=== PATIENT | female | born 1980 | race Caucasian/White ===

== ENCOUNTER 2016-11-03 11:49 | Emergency (ER) | payer MEDICAID ==
[~2016-11-03] VITALS: Ht 157.5 cm; Wt 77.4 kg
[~2016-11-03 11:49] MED LIST: CIPR500T87 PO; HYDR1TAB12 PO; IBUP200C; IBUP800T PO; ONDA4TAB10 PO; OXYC-223 PO
[2016-11-03] MEDS ORDERED: HYDROmorphone 1 MG/ML, 1ML ONE ×2 (12:50→13:33)
[2016-11-03] MEDS ORDERED: ONDANSETRON 2MG/ML, 2ML ONE ×2 (12:50→14:15)
[2016-11-03] MEDS: HYDROmorphone 1 MG/ML, 1ML IVPush PRN ×2 (12:59→13:40)
[2016-11-03] MEDS ORDERED: SODIUM CHLORIDE 0.9% 1,000ML IVBOLUS ONE ×2 (13:00→16:00)
[2016-11-03] MEDS ORDERED: ONDANSETRON 2MG/ML, 2ML IVPush ONE ×2 (13:00→15:00)
[2016-11-03] MEDS ORDERED: SODIUM CHLORIDE FLUSH 10ML SYR IVF ONE (13:00)
[2016-11-03 13:17] LABS: ASPARTATE AMINO TRANSFERASE 26 U/L (15-37); BLOOD UREA NITROGEN 11 mg/dL (7-18)
[2016-11-03] MEDS ORDERED: OMNIPAQUE 350 MG/ML, 100ML BOTTLE ONE (14:10)
[2016-11-03] MEDS ORDERED: KETOROLAC 30 MG/1 ML ONE (15:09)
[2016-11-03] MEDS ORDERED: PROMETHAZINE 25 MG/ML, 1ML ONE (15:09)
[2016-11-03] MEDS ORDERED: PROMETHAZINE 25 MG/ML, 1ML IM ONE (15:30)
[2016-11-03] MEDS ORDERED: KETOROLAC 30 MG/1 ML IVPush ONE (15:30)
[2016-11-03 17:12] VITALS: BP 111/63
== END 2016-11-03 17:14 | disposition home or self-care (01) ==
LOC: ED 14:23
DX: R10.84 Generalized abdominal pain (principal)
CPT/HCPCS: 36415; 74000; 74177; 76700; 80053; 81003; 83690; 85025; 85610; 96361; 96372; 96374; 96375; 96376; 99285; J1170; J1885; J2405; J2550; J7030; Q9967

== ENCOUNTER 2017-05-28 19:33 | Emergency (ER) | payer SELFPAY ==
[~2017-05-28] VITALS: Ht 154.9 cm; Wt 80.0 kg
[~2017-05-28 19:33] MED LIST changes: +IBUP-1223 PO; -IBUP200C; +IBUP200C5; -IBUP800T PO; -OXYC-223 PO; +OXYC-306 PO
[2017-05-28 19:40] VITALS: BP 113/80
[2017-05-28] MEDS ORDERED: AZITHROMYCIN 500 MG TABLET PO STA (20:25)
[2017-05-28] MEDS ORDERED: AZITHROMYCIN 500 MG TABLET ONE (20:31)
[2017-05-28] MEDS ORDERED: AZITHROMYCIN 500 MG TABLET PO ONE (21:00)
== END 2017-05-28 20:49 | disposition home or self-care (01) ==
LOC: ED 20:00
DX: J15.9 Unspecified bacterial pneumonia (principal)
CPT/HCPCS: 71046; 93005; 99284

== ENCOUNTER 2017-06-30 13:02 | Emergency (ER) | payer OTHER ==
[~2017-06-30] VITALS: Ht 157.5 cm; Wt 73.6 kg
[2017-06-30 13:03] VITALS: BP 112/74
[2017-06-30 13:57] LABS: BASOPHILS # (AUTO) 0.04 x10^3/uL (0-0.1); BASOPHILS % (AUTO) 1 % (0-1); EOSINOPHILS # (AUTO) 0.11 x10^3/uL (0-0.4); EOSINOPHILS % (AUTO) 1 % (1-7); LYMPHOCYTES # (AUTO) 1.68 x10^3/uL (1-3.4); LYMPHOCYTES % (AUTO) 18 % (22-44); MD NO; MEAN CORPUSCULAR HEMOGLOBIN 28.8 pg (27.0-34.8); MEAN CORPUSCULAR HGB CONC 33.4 g/dL (32.4-35.8); MEAN CORPUSCULAR VOLUME 86.1 fL (80-100); MEAN PLATELET VOLUME 8.9 fL (7.4-10.4); MONOCYTES # (AUTO) 0.43 x10^3/uL (0.2-0.8); MONOCYTES % (AUTO) 5 % (2-9); NEUTROPHILS # (AUTO) 7.31 x10^3/uL (1.8-6.8); NEUTROPHILS % (AUTO) 76 % (42-75); PLATELET COUNT 377 x10^3/uL (130-400); RED BLOOD COUNT 5.17 x10^6/uL (3.82-5.3); RED CELL DISTRIBUTION WIDTH 12.6 % (9.6-15.2)
[2017-06-30] MEDS ORDERED: FAMOTIDINE 20 MG/2 ML IVP ONE (14:00)
[2017-06-30] MEDS ORDERED: SODIUM CHLORIDE FLUSH 10ML SYR IVF ONE (14:00)
[2017-06-30] MEDS ORDERED: ONDANSETRON 2MG/ML, 2ML IVPush ONE (14:00)
[2017-06-30 14:01] LABS: INTERNATIONAL NORMALIZED RATIO 0.97 (0.93-1.1); PROTHROMBIN TIME 10.1 Seconds (9.6-11.5)
[2017-06-30 14:07] LABS: ALANINE AMINOTRANSFERASE 96 U/L (12-78); ALBUMIN 3.9 g/dL (3.4-5.0); ANION GAP 6 mmol/L (5-15); CALCIUM 8.7 mg/dL (8.5-10.1); CHLORIDE 107 mmol/L (98-107); CREATININE 0.86 mg/dL (0.55-1.02)
[2017-06-30 14:11] LABS: ALKALINE PHOSPHATASE 131 U/L (45-117); BILIRUBIN,TOTAL 0.4 mg/dL (0.2-1.0); TOTAL PROTEIN 8.3 g/dL (6.4-8.2)
[2017-06-30 14:13] LABS: MICROSCOPIC AUTO
[2017-06-30 14:20] LABS: CULTURE INDICATED? YES
[2017-06-30] MEDS ORDERED: HYDROcodone/APAP 5/325 TABLET PO ONE (15:30)
[2017-06-30] MEDS ORDERED: ONDANSETRON ODT 8 MG PO ONE (15:30)
[2017-06-30] MEDS ORDERED: HYDROcodone/APAP 5/325 TABLET ONE (15:38)
[2017-06-30] MEDS ORDERED: ONDANSETRON ODT 4 MG ONE (15:38)
[2017-06-30] MEDS ORDERED: ONDANSETRON ODT 8 MG ONE (15:40)
== END 2017-06-30 15:44 | disposition home or self-care (01) ==
LOC: ED 15:38
DX: R10.11 Right upper quadrant pain (principal)
CPT/HCPCS: 36415; 76700; 80053; 81001; 83690; 84703; 85025; 85610; 87086; 99285; Q0162

== ENCOUNTER 2017-10-25 18:54 | Emergency (ER) | payer SELFPAY ==
[~2017-10-25] VITALS: Ht 162.6 cm; Wt 73.9 kg
[2017-10-25 19:01] VITALS: BP 134/87
[2017-10-25] MEDS ORDERED: METHOCARBAMOL 750 MG TABLET PO ONE (20:00)
[2017-10-25] MEDS ORDERED: KETOROLAC 30 MG/1 ML IM ONE (20:00)
[2017-10-25] MEDS ORDERED: METHOCARBAMOL 750 MG TABLET ONE (20:06)
[2017-10-25] MEDS ORDERED: KETOROLAC 30 MG/1 ML ONE (20:07)
[2017-10-25] MEDS ORDERED: ONDANSETRON ODT 4 MG PO ONE (20:30)
[2017-10-25] MEDS ORDERED: DIPHENHYDRAMINE 25 MG CAPSULE PO ONE (20:30)
[2017-10-25 20:36] LABS: BASOPHILS # (AUTO) 0.07 x10^3/uL (0-0.1); BASOPHILS % (AUTO) 1 % (0-1); EOSINOPHILS # (AUTO) 0.24 x10^3/uL (0-0.4); EOSINOPHILS % (AUTO) 3 % (1-7); LYMPHOCYTES # (AUTO) 2.44 x10^3/uL (1-3.4); LYMPHOCYTES % (AUTO) 27 % (22-44); MD NO; MEAN CORPUSCULAR HEMOGLOBIN 29.4 pg (27.0-34.8); MEAN CORPUSCULAR HGB CONC 33.8 g/dL (32.4-35.8); MEAN CORPUSCULAR VOLUME 87.2 fL (80-100); MEAN PLATELET VOLUME 9.4 fL (7.4-10.4); MONOCYTES # (AUTO) 0.66 x10^3/uL (0.2-0.8); MONOCYTES % (AUTO) 7 % (2-9); NEUTROPHILS # (AUTO) 5.56 x10^3/uL (1.8-6.8); NEUTROPHILS % (AUTO) 62 % (42-75); PLATELET COUNT 385 x10^3/uL (130-400); RED BLOOD COUNT 5.09 x10^6/uL (3.82-5.3); RED CELL DISTRIBUTION WIDTH 13.2 % (9.6-15.2)
[2017-10-25 20:38] LABS: ALBUMIN 3.9 g/dL (3.4-5.0); ANION GAP 4 mmol/L (5-15); CALCIUM 8.8 mg/dL (8.5-10.1); CHLORIDE 108 mmol/L (98-107); CREATININE 0.79 mg/dL (0.55-1.02)
[2017-10-25] MEDS ORDERED: ONDANSETRON ODT 4 MG ONE (20:59)
[2017-10-25] MEDS ORDERED: DIPHENHYDRAMINE 25 MG CAPSULE ONE (20:59)
== END 2017-10-25 22:25 | disposition home or self-care (01) ==
LOC: ED 21:48
DX: R51 Headache (principal); R55 Syncope and collapse; Z90.710 Acquired absence of both cervix and uterus; Z90.722 Acquired absence of ovaries, bilateral
CPT/HCPCS: 36415; 70450; 80048; 82040; 84703; 85025; 93005; 96372; 99285; J1885; Q0162; Q0163

== ENCOUNTER 2017-11-24 19:04 | Emergency (ER) | payer SELFPAY ==
[~2017-11-24] VITALS: Ht 154.9 cm; Wt 73.2 kg
[~2017-11-24 19:04] MED LIST changes: +IBUP-1623; -IBUP200C5
[2017-11-24 20:11] LABS: BASOPHILS # (AUTO) 0.03 x10^3/uL (0-0.1); BASOPHILS % (AUTO) 0 % (0-1); EOSINOPHILS # (AUTO) 0.21 x10^3/uL (0-0.4); EOSINOPHILS % (AUTO) 2 % (1-7); LYMPHOCYTES # (AUTO) 1.85 x10^3/uL (1-3.4); LYMPHOCYTES % (AUTO) 21 % (22-44); MD NO; MEAN CORPUSCULAR HEMOGLOBIN 29.7 pg (27.0-34.8); MEAN CORPUSCULAR HGB CONC 34.2 g/dL (32.4-35.8); MEAN CORPUSCULAR VOLUME 86.9 fL (80-100); MEAN PLATELET VOLUME 9.3 fL (7.4-10.4); MONOCYTES # (AUTO) 0.75 x10^3/uL (0.2-0.8); MONOCYTES % (AUTO) 9 % (2-9); NEUTROPHILS # (AUTO) 5.99 x10^3/uL (1.8-6.8); NEUTROPHILS % (AUTO) 68 % (42-75); PLATELET COUNT 315 x10^3/uL (130-400); RED BLOOD COUNT 4.59 x10^6/uL (3.82-5.3); RED CELL DISTRIBUTION WIDTH 12.9 % (9.6-15.2)
[2017-11-24 20:21] LABS: ALBUMIN 3.8 g/dL (3.4-5.0); ANION GAP 6 mmol/L (5-15); CALCIUM 8.2 mg/dL (8.5-10.1); CHLORIDE 111 mmol/L (98-107)
[2017-11-24 20:28] LABS: CULTURE INDICATED? NO; MICROSCOPIC NOT IND
[2017-11-24 20:34] LABS: ALANINE AMINOTRANSFERASE 38 U/L (12-78); ALKALINE PHOSPHATASE 88 U/L (45-117); BILIRUBIN,TOTAL 0.2 mg/dL (0.2-1.0); CREATININE 0.66 mg/dL (0.55-1.02); T4 (THYROXINE) 9.8 mcg/dL (4.8-13.9); TOTAL PROTEIN 7.2 g/dL (6.4-8.2)
[2017-11-24] MEDS ORDERED: ONDANSETRON ODT 4 MG ONE (20:37)
[2017-11-24] MEDS ORDERED: ONDANSETRON ODT 4 MG PO ONE (21:00)
[2017-11-24 22:23] VITALS: BP 120/61
== END 2017-11-24 22:25 | disposition home or self-care (01) ==
LOC: ED 22:04
DX: E83.51 Hypocalcemia (principal); E87.6 Hypokalemia; R10.13 Epigastric pain; G43.909 Migraine, unspecified, not intractable, without status migrainosus; F17.200 Nicotine dependence, unspecified, uncomplicated; R11.0 Nausea
CPT/HCPCS: 36415; 80053; 81003; 83735; 84436; 84443; 85025; 86308; 93005; 99285; Q0162

== ENCOUNTER 2018-02-01 17:04 | Emergency (ER) | payer MEDICAID, OTHER ==
[~2018-02-01] VITALS: Ht 154.9 cm; Wt 74.3 kg
[2018-02-01] MEDS ORDERED: ASPIRIN 81 MG TABLET CHEW PO ONE (17:30)
[2018-02-01] MEDS ORDERED: ASPIRIN 81 MG TABLET CHEW ONE (17:37)
[2018-02-01 17:57] LABS: BASOPHILS # (AUTO) 0.02 x10^3/uL (0-0.1); BASOPHILS % (AUTO) 0 % (0-1); EOSINOPHILS # (AUTO) 0.22 x10^3/uL (0-0.4); EOSINOPHILS % (AUTO) 2 % (1-7); LYMPHOCYTES # (AUTO) 2.21 x10^3/uL (1-3.4); LYMPHOCYTES % (AUTO) 23 % (22-44); MD NO; MEAN CORPUSCULAR HEMOGLOBIN 30.2 pg (27.0-34.8); MEAN CORPUSCULAR HGB CONC 34.5 g/dL (32.4-35.8); MEAN CORPUSCULAR VOLUME 87.6 fL (80-100); MEAN PLATELET VOLUME 9.1 fL (7.4-10.4); MONOCYTES % (AUTO) 5 % (2-9); NEUTROPHILS # (AUTO) 6.73 x10^3/uL (1.8-6.8); NEUTROPHILS % (AUTO) 70 % (42-75); PLATELET COUNT 396 x10^3/uL (130-400); RED BLOOD COUNT 5.04 x10^6/uL (3.82-5.3); RED CELL DISTRIBUTION WIDTH 12.5 % (9.6-15.2)
[2018-02-01 18:02] LABS: ALBUMIN 3.9 g/dL (3.4-5.0); ANION GAP 9 mmol/L (5-15); CALCIUM 8.8 mg/dL (8.5-10.1); CHLORIDE 106 mmol/L (98-107); CREATININE 1.09 mg/dL (0.55-1.02)
[2018-02-01 18:06] LABS: TROPONIN I < 0.015 ng/mL (0.000-0.045)
[2018-02-01] MEDS ORDERED: KETOROLAC 30 MG/1 ML ONE (18:21)
[2018-02-01] MEDS ORDERED: KETOROLAC 30 MG/1 ML IM ONE (18:30)
[2018-02-01] MEDS ORDERED: DIAZEPAM 5 MG TABLET ONE (18:50)
[2018-02-01] MEDS ORDERED: DIAZEPAM 5 MG TABLET PO ONE (19:00)
[2018-02-01 19:32] VITALS: BP 111/70
== END 2018-02-01 19:33 | disposition home or self-care (01) ==
LOC: ED 17:46
DX: R07.89 Other chest pain (principal)
CPT/HCPCS: 36415; 71046; 80048; 82040; 84484; 85025; 93005; 96372; 99285; J1885

== ENCOUNTER 2018-06-15 17:23 | Emergency (ER) | payer MEDICAID ==
[~2018-06-15] VITALS: Ht 162.6 cm; Wt 71.6 kg
[~2018-06-15 17:23] MED LIST changes: -HYDR1TAB12 PO; +HYDR1TAB13 PO
[2018-06-15 17:41] VITALS: BP 123/80
[2018-06-15] MEDS ORDERED: ASPIRIN 81 MG TABLET CHEW PO ONE (18:00)
[2018-06-15] MEDS ORDERED: ONDANSETRON ODT 4 MG PO ONE (18:30)
[2018-06-15 18:40] LABS: BASOPHILS # (AUTO) 0.05 x10^3/uL (0-0.1); BASOPHILS % (AUTO) 1 % (0-1); EOSINOPHILS # (AUTO) 0.17 x10^3/uL (0-0.4); EOSINOPHILS % (AUTO) 2 % (1-7); LYMPHOCYTES # (AUTO) 2.21 x10^3/uL (1-3.4); LYMPHOCYTES % (AUTO) 27 % (22-44); MD NO; MEAN CORPUSCULAR HEMOGLOBIN 29.9 pg (27.0-34.8); MEAN CORPUSCULAR HGB CONC 33.7 g/dL (32.4-35.8); MEAN CORPUSCULAR VOLUME 88.6 fL (80-100); MEAN PLATELET VOLUME 9.3 fL (7.4-10.4); MONOCYTES # (AUTO) 0.49 x10^3/uL (0.2-0.8); MONOCYTES % (AUTO) 6 % (2-9); NEUTROPHILS # (AUTO) 5.35 x10^3/uL (1.8-6.8); NEUTROPHILS % (AUTO) 65 % (42-75); PLATELET COUNT 380 x10^3/uL (130-400); RED BLOOD COUNT 5.15 x10^6/uL (3.82-5.3); RED CELL DISTRIBUTION WIDTH 12.6 % (9.6-15.2)
[2018-06-15 18:47] LABS: ALBUMIN 4.4 g/dL (3.4-5.0); ANION GAP 8 mmol/L (5-15); CALCIUM 8.8 mg/dL (8.5-10.1); CHLORIDE 107 mmol/L (98-107)
[2018-06-15 18:53] LABS: ALANINE AMINOTRANSFERASE 60 U/L (12-78); ALKALINE PHOSPHATASE 124 U/L (45-117); BILIRUBIN,TOTAL 0.4 mg/dL (0.2-1.0); CREATININE 0.82 mg/dL (0.55-1.02); TOTAL PROTEIN 8.7 g/dL (6.4-8.2); TROPONIN I < 0.015 ng/mL (0.000-0.045)
== END 2018-06-15 20:19 | disposition left against medical advice (07) ==
LOC: ED 20:13
DX: R07.89 Other chest pain (principal); R51 Headache
CPT/HCPCS: 36415; 71045; 80053; 84484; 85025; 93005; 99284

== ENCOUNTER 2018-09-08 14:25 | Emergency (ER) | payer MEDICAID ==
[~2018-09-08] VITALS: Ht 157.5 cm; Wt 73.6 kg
--- NOTE | 2018-09-08 14:57 | NUR ---
pt to ed for rlq pain rad to right flank since last night. pt denies n/v/d and fever. pt connected to monitors. vss. no needs expressed. awaiting edmd assessment.
[2018-09-08 15:02] LABS: MICROSCOPIC AUTO
[2018-09-08 15:06] LABS: CULTURE INDICATED? YES
[2018-09-08] MEDS ORDERED: PHENAZOPYRIDINE 200 MG TABLET ONE (15:16)
[2018-09-08] MEDS ORDERED: KETOROLAC 30 MG/1 ML ONE (15:17)
[2018-09-08 15:20] VITALS: BP 132/75
--- NOTE | 2018-09-08 15:21 | NUR ---
pt resting in room. vss. pt medicated per mar. no needs expressed. call light wihtin reach. awaiting lab resutls.
--- NOTE | 2018-09-08 15:22 | NUR ---
all resutls back at this time. chart up for recheck.
[2018-09-08] MEDS ORDERED: PHENAZOPYRIDINE 200 MG TABLET PO ONE (15:30)
[2018-09-08] MEDS ORDERED: KETOROLAC 30 MG/1 ML IM ONE (15:30)
--- NOTE | 2018-09-08 15:34 | NUR ---
pt up self with steady gait to rr. tolerated well. reconnected to monitors. vss. no other needs expressed. call light within reach. awaiting recheck.
== END 2018-09-08 16:40 | disposition home or self-care (01) ==
LOC: ED 15:57
DX: N30.01 Acute cystitis with hematuria (principal); Z90.710 Acquired absence of both cervix and uterus; Z90.721 Acquired absence of ovaries, unilateral
CPT/HCPCS: 81001; 87077; 87086; 87186; 96372; 99283; J1885